=== PATIENT | female | born 1980 | race Caucasian/White ===

== ENCOUNTER 2017-06-19 07:48 | Inpatient (IN) ==
[2017-06-19] MEDS ORDERED: LACTATED RINGERS 1,000 ML IV ONE (08:25)
[2017-06-19 08:43] LABS: Amorphous Crystals,Urine Occasional /HPF (Few); Apearance,Urine Slightly Hazy (Clear); Bacteria,Urine Occasional /HPF (Few); Bilirubin,Urine Negative (Negative); Blood, Urine Negative (Negative); Glucose,Urine (UA) Negative (Negative); Ketones,Urine 20 mg/dL (Negative); Mucus,Urine Occasional /LPF (Occasional); Nitrite,Urine Negative (Negative); Protein,Urine Negative; RBC,Urine 1 /HPF (0-4); Squamous Epithelial Cell,Urine Occasional /HPF (0-10); Urine Color Yellow (Yellow); Urine Specific Gravity 1.011 (1.001-1.035); Urine Urobilinogen < 2.0 EU/DL (0.2-1.0); WBC,Urine 2 /HPF (0-6)
[2017-06-19] MEDS ORDERED: PHENYLEPHRINE 1 MG/10 ML SYRINGE IV ONE (09:00)
[2017-06-19] MEDS ORDERED: ONDANSETRON 4 MG/2 ML VIAL ONE (09:00)
[2017-06-19] MEDS ORDERED: diphenhydrAMINE 50 MG/1 ML VIAL ONE (09:00)
--- NOTE | 2017-06-19 10:57 | Ultrasound Report ---
History: Severe side pain Date: 06/19/2017 Study: ultrasound biophysical profile Comparison exam: No previous similar Real-time ultrasound images are captured and archived. There is a single intrauterine fetus in vertex presentation with a heart rate of 161 beats minute. breathing movement, gross body movement, tone, and qualitative amniotic volume are normal. The placenta is posterior without previa. NINA measures a normal 13.9 cm. Impression: Low risk for chronic asphyxia. The biophysical profile score is a normal 8 out of 8 PROCEDURE INTERPRETED AT [facility] DEPARTMENT OF RADIOLOGY Final Report Signed by: Dr. Renata Morse
[2017-06-19] MEDS ORDERED: ceFAZolin 2,000 MG in PREMIX 1 EACH IV ONE (11:58)
[2017-06-19] MEDS ORDERED: FAMOTIDINE 20 MG/2 ML VIAL IV ONE (11:58)
[2017-06-19] MEDS ORDERED: CITRIC ACID/SODIUM CITRATE 30 ML UDCUP PO ONE (11:58)
[2017-06-19] MEDS ORDERED: OXYTOCIN/LR 20 UNIT/1,000 ML BAG IV ONE ×5 (12:21→21:18)
[2017-06-19 12:30] LABS: Basophils % 0.1 % (0.0-0.8); Hematocrit 35.9 VOL% (35.7-47.0); Immature Granulocytes % 0.5 %; Immature Granulocytes Absolute 0.06 #; Lymphocytes # 1.2 10*3/uL (1.4-4.0); Lymphocytes % 10.6 % (21.3-54.2); Mean Corpuscular HGB Conc 33.4 GM/DL (32-36); Mean Corpuscular Hemoglobin 30 PG (27-34); Mean Corpuscular Volume 88.6 FL (87-102); Mean Platelet Volume 10.7 FL (9.6-12.0); Monocytes # 0.5 10*3/uL (0.11-0.8); Monocytes % 4.2 % (1.7-12.7); Neutrophils # 9.6 10*3/uL (1.4-7.4); Neutrophils % 84.6 % (38.7-73.9); Platelet Count 171 T/CUMM (130-400); Red Blood Count 4.05 MC/CUMM (3.8-5.5); Red Cell Distribution Width 14.3 % (9.3-17.3); White Blood Count 11.4 T/CUMM (4-12)
[2017-06-19] MEDS ORDERED: LACTATED RINGERS 1,000 ML IV SCH ×2 (13:00→21:30)
[2017-06-19 13:02] LABS: Albumin 2.7 G/DL (3.4-5.0); Bilirubin,Total 0.4 MG/DL (0.2-1.0); Osmolality,Calculated 273.5 MOS/KG (273-304); Potassium 4.2 MMOL/L (3.5-5.1); Total Protein 6.4 G/DL (6.4-8.3)
[2017-06-19] MEDS ORDERED: TISSUE ADHESIVE 1 EACH APPLICATOR TOP ONE (14:11)
[2017-06-19 14:19] LABS: Cord Arterial Blood HCO3 24.6 MMOL/L
[2017-06-19 14:24] LABS: Cord Venous Blood HCO3 22.3 MMOL/L; Cord Venous Blood PCO2 46.8 MMHG; Cord Venous Blood PO2 19.3 MMHG
--- NOTE | 2017-06-19 14:34 | OB/GYN History & Physical ---
History of Present Illness History of present illness: Ms. Collins is a 37 year old female PT. 37Y/O LONG 07/04/17 @ 37WKS PREVIOUS C/S X 1 PRESENTS TO LABOR AND DELIVERY WITH CONTRACTIONS AND RIGHT SIDED PAIN SINCE EARLIER TODAY. PT CARE WITH DR. RINALDI AND PER PT UNCOMPLICATED. PT GIVEN IV HYDRATION HOWEVER IS CRYING IN PAIN WITH REGULAR CONTRACTIONS. 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 - Constitutional General appearance: severe distress - Antepartum / Post Post Exam Cervix - Dilatation: fingertip Effacement: short Station: -2 Heart Rate: category 1 tracing, toco every 2-3 minutes - Respiratory Respiratory exam: Present: clear to auscultation bilaterally - Cardiovascular Cardiovascular exam: Present: regular rate and rhythm - GI/Abdominal GI/Abdominal exam: Present: normal bowel sounds - Extremities Exam Extremities exam: Present: normal inspection - Psychiatric Psychiatric exam: Present: normal affect Assessment and Plan (1) contractions Status: Acute Current Visit: Yes (2) Previous section Status: Acute Assessment and plan: 1. admit to labor and delivery 2. pt counseled regarding regular contractions with hx of previous . Pt. is crying in the bed stating she is in severe pain and the pain in her right side correlates when the patient has a contraction. we discussed proceeding with a repeat delivery and the patient agrees. we discussed risk of bleeding, infection, bowel or bladder injury, hysterectomy and the patient expressed her understanding. all questions answered. 3. labs 4. anesthesia consult 5. continuous external monitoring Current Visit: Yes (3) early labor Status: Acute Current Visit: Yes Results - Labs CBC & BMP: 06/19/17 12:15 06/19/17 Unknown
[2017-06-19] MEDS ORDERED: MORPHINE 10 MG/10 ML VIAL ONE (14:37)
[2017-06-19] MEDS ORDERED: fentaNYL 100 MCG/2 ML VIAL ONE (14:37)
[2017-06-19] MEDS ORDERED: MIDAZOLAM 2 MG/2 ML VIAL ONE (14:37)
--- NOTE | 2017-06-19 14:40 | Anesthesia Post-Op ---
Anesthesia Post OP - Post Ansesthetic Evaluation Patient seen in post op: Yes Resp: within normal limits CV: within normal limits Mental: within normal limits Temp: within normal limits [id number]: within normal limits Nausea and Vomiting: within normal limits Pain: within normal limits
--- NOTE | 2017-06-19 15:03 | Operative Note ---
Date of procedure: 06/19/17 Pre-op diagnosis: 37y/o @ 37 wks prev c/s x 1 in early labor Post-op diagnosis: same Procedure: FINDINGS: A living Female , time 1338, vertex , weight 7lbs 14oz, scores 9 and 9. DESCRIPTION OF PROCEDURE: The patient was brought to the operating room after her spinal preparation, and Villeda had been performed. The abdomen was prepped and draped in the normal sterile fashion and tested for analgesia. When found to be adequate, a low-abdominal Pfannenstiel incision was made with the first knife and carried down to the fascia with the bovie. The fascia was cleared of subcutaneous tissue. Bleeding points were clamped with hemostats and Bovie coagulated. The fascia was incised in the midline and extended laterally with curved Zelaya scissors. Brent clamps were placed on the fascial edge, anteriorly. The rectus muscles were by sharp dissection. The rectus muscles were divided in the midline by sharp dissection. The parietoperitoneum was grasped with hemostats and carefully entered and the incision extended with Metzenbaum scissors. The bladder blade was inserted. The visceroperitoneum was grasped with smooth pickups, entered with Metzenbaum scissors, and extended laterally. The bladder flap was created by gentle blunt dissection and placed behind the bladder blade. The lower uterine segment was carefully incised with a scalpel and extended laterally with bandage scissors. A living female was delivered atraumatically from the vertex presentation. The baby was suctioned and cried immediately, and was handed to the pediatric team in attendance. The placenta was delivered with gentle uterine massage. The uterus was explored with a wet lap sponge and found to be clear of membranes. The angles of the incision were sutured 0 vicryl in a locked running fashion. Hemostasis was carefully checked and found to be satisfactory. The fallopian tubes and ovaries were inspected and found to be normal bilaterally. Interceed was then placed over the uterine incision. The peritoneum was approximated using 2. 0 chromic in a running fashion. The muscle was reapproximated using 2.0 chromic in an interrupted fashion. The fascia was closed with 0-Vicryl in a running fashion. The subcutaneous tissue was approximated with interrupted 2-0 plain catgut. The skin was closed in a subcuticular fashion with 4.0 monocryl. The patient was transferred to the recovery room in good condition. Anesthesia: spinal Surgeon / Physician: Magali Pascual Estimated blood loss: other (700cc) Specimens: other (placenta, cord, membranes) Condition: stable Disposition: floor Results - Labs CBC & BMP: 06/19/17 12:15 06/19/17 Unknown Discharge Plan - Discharge Medications No Action Multivitamin () [ Vitamin] 1 mg PO DAILY - Follow Up or Referral - Forms/Instructions
[2017-06-19] MEDS ORDERED: diphenhydrAMINE 50 MG/1 ML VIAL IM PRN (15:35)
[2017-06-19] MEDS ORDERED: diphenhydrAMINE 50 MG/1 ML VIAL IV PRN (16:02)
[2017-06-19] MEDS ORDERED: RHO(D) IMMUNE GLOBULIN 300 MCG SYRINGE IM ONE (21:18)
[2017-06-19] MEDS ORDERED: ACETAMINOPHEN 325 MG TABLET PO PRN (21:18)
[2017-06-19] MEDS ORDERED: ONDANSETRON 4 MG/2 ML VIAL IV PRN (21:18)
[2017-06-19 22:03] LABS: Basophils % 0.1 % (0.0-0.8); Eosinophils % 0.1 % (0.00-10.9); Hematocrit 33.9 VOL% (35.7-47.0); Hemoglobin 11.2 GM/DL (12.0-16.0); Immature Granulocytes % 0.4 %; Immature Granulocytes Absolute 0.06 #; Lymphocytes # 1.4 10*3/uL (1.4-4.0); Lymphocytes % 10.6 % (21.3-54.2); Mean Corpuscular Hemoglobin 29 PG (27-34); Mean Platelet Volume 10.6 FL (9.6-12.0); Monocytes # 0.8 10*3/uL (0.11-0.8); Monocytes % 5.8 % (1.7-12.7); Neutrophils # 11.1 10*3/uL (1.4-7.4); Platelet Count 147 T/CUMM (130-400); Red Blood Count 3.81 MC/CUMM (3.8-5.5); Red Cell Distribution Width 14.1 % (9.3-17.3); White Blood Count 13.4 T/CUMM (4-12)
[2017-06-20] MEDS: IBUPROFEN 800 MG TABLET PO PRN ×2 (02:20→11:34)
[2017-06-20 06:58] LABS: Basophils % 0.1 % (0.0-0.8); Eosinophils % 0.2 % (0.00-10.9); Hematocrit 34.1 VOL% (35.7-47.0); Hemoglobin 11.2 GM/DL (12.0-16.0); Immature Granulocytes % 0.5 %; Immature Granulocytes Absolute 0.06 #; Lymphocytes # 1.4 10*3/uL (1.4-4.0); Lymphocytes % 11.4 % (21.3-54.2); Mean Corpuscular HGB Conc 32.8 GM/DL (32-36); Mean Corpuscular Hemoglobin 30 PG (27-34); Mean Platelet Volume 10.6 FL (9.6-12.0); Monocytes # 0.8 10*3/uL (0.11-0.8); Monocytes % 6.3 % (1.7-12.7); Neutrophils % 81.5 % (38.7-73.9); Platelet Count 156 T/CUMM (130-400); Red Blood Count 3.79 MC/CUMM (3.8-5.5); Red Cell Distribution Width 14.3 % (9.3-17.3); White Blood Count 12.3 T/CUMM (4-12)
[2017-06-20] MEDS: MULTIVITAMIN (PRENATAL) TABLET PO SCH (10:31)
[2017-06-20] MEDS: DOCUSATE SODIUM 100 MG CAPSULE PO SCH ×3 (10:31→20:24)
--- NOTE | 2017-06-20 13:03 | OB/GYN Progress Note ---
Assessment and Plan (1) contractions Status: Acute Assessment and plan: 1. cont. current management 2. incentive spirometer 3. ambulate 4. pain management. Current Visit: Yes (2) Previous section Status: Acute Assessment and plan: 1. admit to labor and delivery 2. pt counseled regarding regular contractions with hx of previous . Pt. is crying in the bed stating she is in severe pain and the pain in her right side correlates when the patient has a contraction. we discussed proceeding with a repeat delivery and the patient agrees. we discussed risk of bleeding, infection, bowel or bladder injury, hysterectomy and the patient expressed her understanding. all questions answered. 3. labs 4. anesthesia consult 5. 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 seen by bedside, denies any complaints. no fever, chest pain or shortness of breath. no palpitations or dizziness. + ambulating and tolerating regular diet. 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 Vitals: Vital Signs Temp Pulse Resp BP Pulse Ox 06/20/17 08:00 97.8 F 103 H 20 103/62 06/20/17 05:00 18 06/20/17 04:00 98.6 F 98 H 20 99/60 98 06/20/17 03:00 18 06/20/17 01:00 18 06/20/17 00:00 97.6 F 80 20 126/72 98 06/19/17 20:40 83 20 122/74 98 06/19/17 19:40 97.1 F L 81 20 120/77 98 06/19/17 18:40 97.8 F 84 18 128/63 97 06/19/17 18:10 97.8 F 74 18 120/61 98 06/19/17 17:40 97.0 F L 84 20 135/70 99 General appearance: no acute distress - Respiratory Respiratory exam: Present: clear to auscultation bilaterally - Cardiovascular Cardiovascular exam: Present: regular rate and rhythm - GI/Abdominal GI/Abdominal exam: Present: normal bowel sounds - Extremities Exam Extremities exam: Present: normal inspection - Psychiatric Psychiatric exam: Present: normal affect, normal mood Results - Labs CBC & BMP: 06/20/17 06:36 06/19/17 Unknown
[2017-06-20] MEDS: SIMETHICONE CHEW 80 MG TABLET PO PRN ×2 (13:10→19:50)
[2017-06-20] MEDS: oxyCODONE/ACETAMINOPHEN 5-325 MG TABLET PO PRN (16:01)
[2017-06-20] MEDS: MAGNESIUM HYDROXIDE SUSP 30 ML UDCUP PO PRN (19:50)
[2017-06-21] MEDS: oxyCODONE/ACETAMINOPHEN 5-325 MG TABLET PO PRN ×2 (05:00→17:39)
[2017-06-21] MEDS: IBUPROFEN 800 MG TABLET PO PRN ×2 (05:00→17:40)
[2017-06-21] MEDS: DOCUSATE SODIUM 100 MG CAPSULE PO SCH ×2 (09:10→21:13)
[2017-06-21] MEDS: MAGNESIUM HYDROXIDE SUSP 30 ML UDCUP PO PRN (09:11)
[2017-06-21] MEDS: SIMETHICONE CHEW 80 MG TABLET PO PRN (09:11)
[2017-06-21] MEDS: MULTIVITAMIN (PRENATAL) TABLET PO SCH (09:11)
--- NOTE | 2017-06-21 09:15 | Discharge Summary ---
Hospital Course - Hospital Course Hospital Course: Pt underwent repeat C/S at 37 wks due to early labor without complication. Her postop course has been unremarkable except for expected postop discomfort. Specialty Discharge - Follow Up or Referrals Follow up with: Magali Pascual MD [Physician] - 07/05/17 9:30 am Discharge Plan - Discharge Data Disposition: Disch To Home/Self Care Condition at Discharge: Stable Discharge Diet: regular diet Activity: other (pelvic rest x 6 wks) Hygiene: may shower Weight Bearing at Discharge: full weight bearing Driving: not until seen by doctor Contact your physician if you experience:: fever over 101, Difficulty voiding, Redness or swelling, Nausea/Vomiting, Shortness of breath, Bleeding, pain uncontrolled by pain medications - Discharge Medications New Ibuprofen Tab [Motrin Tab] 800 mg PO Q8H PRN #30 tablet PRN Reason: Pain Severe (8-10) HYDROcodone/ACETAMIN 5-325 [[place] 5-325] 2 tablet PO Q6H PRN #30 tablet PRN Reason: Pain Severe (8-10) No Action Multivitamin () [ Vitamin] 1 mg PO DAILY - Follow Up or Referral Follow Up: Helena Prescott DO [Physician] - 1 Week Magali Pascual MD [Physician] - 07/05/17 9:30 am - Forms/Instructions Exam - Constitutional Vitals: Period Temp Pulse Resp BP Sys/Rahman Pulse Ox Last 24 Hr 97.4 F-97.9 F 97-112 18-20 98-125/53-76 95-100 General appearance: no acute distress, over weight - Head Head exam: Present: normal inspection, normocephalic - Eye Eye exam: Present: EOMI - Respiratory Respiratory exam: Present: clear to auscultation bilaterally - Cardiovascular Cardiovascular exam: Present: regular rate and rhythm - GI/Abdominal GI/Abdominal exam: Present: soft (Incision healing well withoug E/I/D) - Extremities Exam Extremities exam: Present: normal inspection - Neurological Exam Neurological exam: Present: alert, oriented X3 - Psychiatric Psychiatric exam: Present: normal affect, normal mood - Skin Skin exam: Present: normal color, warm DS: Provider Date of admission: 06/19/17 11:59 Primary care physician: . No PCP Attending physician on admission: Magali Pascual MD Consults: 06/19/17 11:59 Consult to Anesthesiology [CONS] Routine Consulting Provider: Reason for Anesthesiology: Pre-op Clearance 06/19/17 21:18 Consult to Program Planner [CONS] Routine Consult Program Planner: Breast Feeding Discharging clinician: Helena Prescott DO
[2017-06-22 07:18] VITALS: BP 133/74
[2017-06-22] MEDS: MULTIVITAMIN (PRENATAL) TABLET PO SCH (08:04)
[2017-06-22] MEDS: DOCUSATE SODIUM 100 MG CAPSULE PO SCH (08:04)
[2017-06-22] MEDS: oxyCODONE/ACETAMINOPHEN 5-325 MG TABLET PO PRN (08:04)
[2017-06-22] MEDS: SIMETHICONE CHEW 80 MG TABLET PO PRN (08:06)
[2017-06-22] MEDS ORDERED: ONDANSETRON 4 MG TABLET PO ONE (10:06)
--- NOTE | 2017-06-22 11:15 | Pathology Report from [facility] ---
[facility] [place] : [id number] PATIENT NAME : Alycer,Renetta Fountain ORDERING DR : Magali Pascual MD CLINICAL HX: IUP @ 37 wks, repeat C/S @ term, active labor POST-OP DX: same SPECIMEN INFO: Placenta GROSS DESCRIPTION: Received fresh labeled RENETTA FERNANDEZ is a 616 gm placenta measuring 18.0 x 22.5 x 2.5 cm. The membranes are pink morillo and translucent. The umbilical cord measures 16.0 cm, contains three vessels and is pericentrally inserted. The surface is blue garcia and intact with an areas of subchorionic fibrin noted measuring 2.7 x 2.0 cm. The maternal surface displays mildly disrupted hemorrhagic cotyledons with scattered calcifications seen. Sections submitted A- membranes and cord, B- and maternal surfaces. DIAGNOSIS FOR RENETTA RIZOR: PLACENTA: Trivascular umbilical cord. Unremarkable membranes. Third trimester placenta with dystrophic calcification and subchorionic fibrin deposition. COLLECTED DATE: 06/21/2017 [facility] REPORT DATE: 06/22/2017 ELECTRONICALLY SIGNED BY: Tania Villa III, M.D. 06/22/2017 - 10:09:01 JEN
== END 2017-06-22 14:15 | disposition home or self-care (01) | DRG 766 ==
LOC: N.LDOUT 07:48 → N.LD 07:50 → N.OB 17:42
PROVIDERS: ADMIT Obstetrics & Gynecology; ATTEND Obstetrics & Gynecology
PROC: LDCSECT (ICD-10-PCS; 2017-06-19 12:00)